=== PATIENT | male | born 1995 | race Two or more races ===

== ENCOUNTER 2021-07-02 06:01 | Day surgery (SDC) | payer OTHER ==
[~2021-07-02 06:01] MED LIST: Lactated Ringers 1,000 ML IV SCH
[2021-07-02] MEDS ORDERED: Metoclopramide 10 MG/2 ML SDV IVPUSH PRN (06:54)
[2021-07-02] MEDS ORDERED: Naloxone 0.4 MG/ML SDV IVPUSH PRN (06:54)
[2021-07-02] MEDS ORDERED: Ondansetron 4 MG/2 ML SDV IVPUSH PRN (06:54)
[2021-07-02] MEDS ORDERED: fentaNYL 100 MCG/2 ML SDV IVPUSH PRN (06:54)
[2021-07-02] MEDS ORDERED: HYDROmorphone 1 MG/ML Syringe IVPUSH PRN (06:54)
[2021-07-02] MEDS ORDERED: Albuterol 0.083% 2.5 MG/3 ML Neb Soln NEB PRN (06:54)
[2021-07-02] MEDS ORDERED: Midazolam 1 MG/ML 2 ML SDV ONE (07:05)
[2021-07-02] MEDS ORDERED: Bupivacaine 0.5% 30 ML SDV ONE (07:06)
[2021-07-02] MEDS ORDERED: Propofol 200 MG/20 ML SDV ONE ×2 (07:36→09:46)
[2021-07-02] MEDS ORDERED: fentaNYL 250 MCG/5 ML SDV ONE (07:50)
[2021-07-02] MEDS ORDERED: Bupivacaine Liposome 1.3% 20 ML SDV ONE (08:00)
[2021-07-02] MEDS ORDERED: ceFAZolin 2 GM in Premix Bag 1 BAG IV SCH (08:00)
[2021-07-02] MEDS ORDERED: HYDROmorphone 2 MG/ML Syringe ONE ×2 (09:00→09:26)
[2021-07-02] MEDS ORDERED: Ondansetron 4 MG/2 ML SDV IVPUSH ONE (11:41)
== END 2021-07-02 14:55 | disposition home or self-care (01) ==
LOC: MW.SDS 06:01
PROVIDERS: ATTEND Orthopaedic Surgery
DX: S83.211A Bucket-handle tear of medial meniscus, current injury, right knee, initial encounter (principal); S83.511A Sprain of anterior cruciate ligament of right knee, initial encounter; X58.XXXA Exposure to other specified factors, initial encounter
CPT/HCPCS: 29881; 29888; C1713; J0131; J0690; J1170; J2250; J2704; J3010; J3490; J7120; 01400; 64450; 76942